=== PATIENT | female | born 1945 | race Caucasian/White ===

== ENCOUNTER 2017-07-02 07:23 | Outpatient (CLI) | payer MEDICARE ==
--- NOTE | 2017-07-02 09:47 | CT ---
LOW DOSE CT CHEST NONCONTRAST PULMONARY LUNG SCAN: Date: 07/02/17 HISTORY: Smoking History. Lowe Dose Screening Evaluation. COMPARISON: No prior comparison. FINDINGS: Subpleural reticulonodularity is present with the right upper lobe, with nodular component measuring 6mm, which contains calcification. There is no evidence of mass or consolidation within the pulmonary parenchyma bilaterally. Linear den sities adjacent to the heart bilaterally may relate to scar and/or volume loss. There is mild pulmon selina emphysema. Regional soft tissues are limited in assessment by noncontrast low dose technique. The re is atherosclerosis. Borderline nonspecific lymph nodes of the chest are present, with precarinal l ymph node short axis diameter of approximately 9 mm. IMPRESSION: 1. Lung-RADS primary category 3: Probably Benign. Continued annual screening with low dose CT in 6 months is warranted. 2. Mild pulmonary emphysema is present. POS: [facility]
== END 2017-07-02 07:24 | disposition home or self-care (01) ==
LOC: CT 07:23
PROVIDERS: ATTEND Internal Medicine
DX: Z87.891 Personal history of nicotine dependence (principal); J43.9 Emphysema, unspecified
CPT/HCPCS: G0297

== ENCOUNTER 2017-07-02 10:13 | Outpatient (CLI) | payer MEDICARE | END 2017-07-02 10:14 | disposition home or self-care (01) | LOC: BICULT 10:13 | PROVIDERS: ATTEND Internal Medicine | DX: N28.1 Cyst of kidney, acquired (principal) | CPT/HCPCS: 76770 ==

== ENCOUNTER 2017-07-06 13:06 | Outpatient (CLI) | payer MEDICARE, OTHER | END 2017-07-06 13:07 | disposition home or self-care (01) | LOC: BICMAMMO 13:06 | PROVIDERS: ATTEND Internal Medicine | DX: Z12.31 Encounter for screening mammogram for malignant neoplasm of breast (principal); M85.88 Other specified disorders of bone density and structure, other site; N63.20 Unspecified lump in the left breast, unspecified quadrant; Z78.0 Asymptomatic menopausal state; Z80.3 Family history of malignant neoplasm of breast | CPT/HCPCS: 77063; 77067; 77080 ==

== ENCOUNTER 2017-07-07 09:59 | Outpatient (CLI) | payer MEDICARE | END 2017-07-07 10:00 | disposition home or self-care (01) | LOC: BICMAMMO 09:59 | PROVIDERS: ATTEND Internal Medicine | DX: N63.20 Unspecified lump in the left breast, unspecified quadrant (principal); Z80.3 Family history of malignant neoplasm of breast | CPT/HCPCS: 76642; 77065; G0279 ==

== ENCOUNTER 2018-01-06 07:37 | Outpatient (CLI) | payer MEDICARE ==
--- NOTE | 2018-01-06 08:42 | CT ---
CT PULMONARY LUNG SCAN WITHOUT IV CONTRAST: INDICATION: Lung RADS category 3 lesion within the right upper lobe with a 50-year history of smoking; quit smoki ng 10 years ago. The patient had a left breast biopsy but denies shortness of breath or chest pain. COMPARISON: Prior exam dated 07/02/2017. FINDINGS: The 9 mm x 9.4 mm spiculated right upper lobe pulmonary nodule with eccentric calcification and adjac ent scarring extending to the pleural surface with pleural thickening is stable. This is seen on harvey ge 15 of series 3 and image 51 of the coronal series. Previously, the lesion was measured just in a portion of its component. The lesion is measured in total on today's exam. Scattered centrilobular emphysema is stable. There are coronary artery thoracic aortic calcifications. Visualized upper abd omen is unremarkable. There is scattered degenerative and osteoarthritic change. IMPRESSION: 1. Lung RADS category 3, probably benign. Recommend low-dose CT cancer screening followup in 6 alexandra hs to document stability. 2. Emphysema. POS: [facility]
== END 2018-01-06 07:38 | disposition home or self-care (01) ==
LOC: CT 07:37
PROVIDERS: ATTEND Internal Medicine
DX: Z87.891 Personal history of nicotine dependence (principal); R91.1 Solitary pulmonary nodule; J43.2 Centrilobular emphysema
CPT/HCPCS: G0297

== ENCOUNTER 2018-07-13 09:33 | Outpatient (CLI) | payer MEDICARE ==
--- NOTE | 2018-07-13 11:56 | CT ---
CT CHEST WITHOUT CONTRAST: 07/13/2018 PROVIDED CLINICAL HISTORY: Personal history of tobacco use. COMPARISON: 07/02/2017 and 01/06/2018 FINDINGS: There is a stable appearing 9 x 5 mm spiculated nodule with eccentric calcification involving the ant erior aspect of the right upper lobe. The lungs remain otherwise free of significant opacity. Emphysematous changes are seen involving the lung apices, similar to prior. Vascular calcification, including coronary calcium, is redemonstrated. There is no evidence for thor acic lymph node enlargement with limitations due to lack of IV contrast material. No pleural fluid or pneumothorax apparent. The visualized portions of the upper abdomen appear gross ly unremarkable. The osseous structures demonstrate no concerning lytic or blastic lesions. IMPRESSION: 1. Stable spiculated right upper lobe pulmonary nodule. 2. Lung-RADS category 3. Six-month follow-up CT recommended. POS: C
== END 2018-07-13 09:34 | disposition home or self-care (01) ==
LOC: CT 09:33
PROVIDERS: ATTEND Internal Medicine
DX: Z87.891 Personal history of nicotine dependence (principal); R91.1 Solitary pulmonary nodule
CPT/HCPCS: G0297

== ENCOUNTER 2018-07-15 10:30 | Outpatient (CLI) | payer MEDICARE ==
--- NOTE | 2018-07-15 11:15 | MMO ---
Bilateral MAMMO Bilat Screen [facility]. CLINICAL HISTORY: Patient is 72 years old and is seen for screening. The patient has the following family history of breast cancer: sister, malignant (generic). The patient has no personal history of cancer. The patient has a history of left Excisional Biopsy - benign - 20-25 yrs ago (approximately 41 or 46). VIEWS: The views performed were: bilateral craniocaudal with tomosynthesis and bilateral mediolateral oblique with tomosynthesis. FILMS COMPARED: The present examination has been compared to prior imaging studies performed at [facility] on 07/04/2013, 07/25/2014, 07/06/2017 and 07/07/2017. MAMMOGRAM FINDINGS: The breasts are heterogeneously dense, which could obscure a lesion on mammography. Finding 1: There are stable benign appearing calcifications seen in both breasts. Finding 2: There is a nodule seen in the left breast. There are no suspicious masses, suspicious calcifications, or new areas of architectural distortion. IMPRESSION: THERE IS NO MAMMOGRAPHIC EVIDENCE OF MALIGNANCY. A ROUTINE FOLLOW-UP MAMMOGRAM IN 1 YEAR IS RECOMMENDED. THE RESULTS OF THIS EXAM WERE SENT TO THE PATIENT. ACR BI-RADS Category 2 - Benign finding MAMMOGRAPHY NOTE: 1. A negative mammogram report should not delay a biopsy if a dominant of clinically suspicious mass is present. 2. Approximately 10% to 15% of breast cancers are not detected by mammography. 3. Adenosis and dense breasts may obscure an underlying neoplasm.
== END 2018-07-15 10:31 | disposition home or self-care (01) ==
LOC: BICMAMMO 10:30
PROVIDERS: ATTEND Internal Medicine
DX: Z12.31 Encounter for screening mammogram for malignant neoplasm of breast (principal); Z80.3 Family history of malignant neoplasm of breast
CPT/HCPCS: 77063; 77067

== ENCOUNTER 2018-08-16 06:06 | Observation (INO) | payer MEDICARE ==
[2018-08-16 07:27] LABS: #Eosinphils 0.2 thou/uL (0.0-0.7); #Lymphocytes 1.8 thou/uL (1.20-3.40); #Monocytes 0.7 thou/uL (0.11-0.59); #Neutrophils 6.6 thou/uL (1.40-6.50); %Basophils 0.4 % (0.0-1.0); %Eosinophils 1.9 % (0.0-10.0); %Lymphocytes 19.4 % (21.0-51.0); %Monocytes 7.3 % (0.0-10.0); Hemoglobin 14.2 g/dL (12.0-16.0); Mean Corpuscular Hemoglobin 30.1 pg (27.0-31.0); Mean Platelet Volume 8.1 fL (7.4-10.4); Platelet Count 208 thou/uL (130-400); RBC Distribution Width 12.1 % (11.5-14.5); Red Blood Cell (RBC) Count 4.72 mill/uL (4.20-5.40); White Blood Cell (WBC) Count 9.2 thou/uL (4.8-10.8)
--- NOTE | 2018-08-16 07:30 | RAD ---
EXAM: Single view of the chest HISTORY: Chest pain COMPARISON: None FINDINGS: Single view of the chest shows a normal sized cardiomediastinal silhouette. There is no rajesh dence of consolidation, mass, or pleural effusion. The bones are unremarkable. IMPRESSION: No evidence of acute cardiopulmonary disease
[2018-08-16 07:37] LABS: ALT (SGPT) 14 U/L (8-55); AST (SGOT) 12 U/L (5-34); Alkaline Phosphatase 109 U/L (40-150); Anion Gap 12 mmol/L (10-20); BUN (Urea Nitrogen) 18 mg/dL (9.8-20.1); Bilirubin, Total 0.5 mg/dL (0.2-1.2); CK (CPK) 39 U/L (29-168); Calc. Creatinine Clearance 0 mL/min (70-130); Calcium 9.5 mg/dL (7.8-10.44); Carbon Dioxide 27 mmol/L (23-31); Chloride 106 mmol/L (98-107); Estimated GFR-MDRD 59; Globulin 3.4 g/dL (2.4-3.5); Glucose 119 mg/dL (83-110); Potassium 3.5 mmol/L (3.5-5.1); Protein, Total 7.4 g/dL (6.0-8.3); Sodium 141 mmol/L (136-145)
[2018-08-16] MEDS ORDERED: Ondansetron PF 4 MG/2 ML Vial IVP PRN ×2 (09:17)
[2018-08-16] MEDS ORDERED: Benzonatate 100 MG CAP PO PRN (09:17)
[2018-08-16] MEDS ORDERED: Acetaminophen 325 MG TAB PO PRN (09:17)
[2018-08-16] MEDS ORDERED: Sodium Chloride 0.65% Nasal 44 ML BOT EA NARE PRN (09:17)
[2018-08-16] MEDS ORDERED: hydrALAZINE 20 MG/ML VIAL SLOW IVP PRN (09:17)
[2018-08-16] MEDS ORDERED: Diabetic Tussin 200 MG/10 ML UDCUP PO PRN (09:17)
[2018-08-16] MEDS ORDERED: Bisacodyl 5 MG TAB PO PRN ×2 (09:17)
[2018-08-16] MEDS ORDERED: cloNIDine 0.1 MG TAB PO PRN (09:17)
[2018-08-16] MEDS ORDERED: Senokot S 8.6-50 MG TAB PO PRN ×2 (09:17)
[2018-08-16] MEDS ORDERED: Pantoprazole 40 MG VIAL IVP SCH ×2 (09:45→12:15)
[2018-08-16] MEDS ORDERED: Amlodipine 10 MG TAB PO SCH (09:45)
[2018-08-16] MEDS ORDERED: Aspirin 325 MG TAB ONE (10:12)
--- NOTE | 2018-08-16 10:23 | HP ---
PRIMARY CARE PHYSICIAN: Herminia Mustafa MD CHIEF COMPLAINT: Severe acid reflux, heartburn, rule out ACS. HISTORY OF PRESENTING ILLNESS: Ms. Magaña is a very pleasant 73-year-old otherwise healthy female except for history of hypertension, new diagnosis of dyslipidemia, who presented to the ER with above-mentioned complaint. History is mainly obtained by the patient herself. Electronic medical records have been reviewed. Ms. Magaña reports that when she woke up at 4:30 in the morning to go to the bathroom, she noticed severe heartburn, starting upper abdomen under the sternum and then it later spread upwards to her chest and then down both of her arms. She describes it as a "hot" sensation. She has no associated shortness of breath, palpitation, dizziness, diaphoresis, nausea, or vomiting. She has not been sick recently. She denies any weight loss, dysphagia, poor appetite, hematochezia, or melena. She has no urinary complaints. She reports that these symptoms have happened once more about few weeks ago. She was recently seen by her primary care physician and was found to have elevated cholesterol, so was started on atorvastatin. The patient has been taking amlodipine and atorvastatin along with her fish oil, all on empty stomach. She does take the fish oil for the last 5 years, but reports that the heartburn is just getting worse for the last month or so. In the emergency room upon presentation, she was hemodynamically stable with a blood pressure of 135/77, saturating 96% on room air, heart rate 77. She had general evaluation including a 12-lead EKG, which did not show any acute ST or T-wave changes suggestive of ACS and her initial cardiac enzyme and chest x-ray were also unremarkable. She was given aspirin in the emergency room and is now being admitted to rule out ACS. PAST MEDICAL HISTORY: Hypertension and new diagnosis of dyslipidemia. PAST SURGICAL HISTORY: None reviewed with the patient. PSYCHIATRIC HISTORY: No anxiety. No depression. SOCIAL HISTORY: She has no history of drug, tobacco, or alcohol abuse. She used to smoke, but has quit more than 10 years ago. FAMILY HISTORY: No significant family history of heart attack or stroke. REVIEW OF SYSTEMS: A 14-point review of systems done and is negative except for those mentioned in the history and physical. ALLERGIES: NO KNOWN MEDICATION ALLERGIES. CURRENT MEDICATIONS: 1. Amlodipine 5 mg daily. 2. Atorvastatin 10 mg daily. 3. Fish oil daily. 4. Multivitamin daily. CODE STATUS: Full code discussed with the patient in detail. LABORATORY DATA: CBC is unremarkable. Serum chemistry is unremarkable. Blood sugar 119. Cardiac enzyme less than 0.010 for troponin. LFTs are within normal limits. Chest x-ray by my review shows no evidence of pleural effusion, edema, or infiltrate. A 12-lead EKG by my review shows normal sinus rhythm at 91 beats per minute without any ectopies. GA interval 140, QTc 467 milliseconds by my review. PHYSICAL EXAMINATION: VITAL SIGNS: Most recently, blood pressure 137/77, pulse of 77, respirations 16, temperature 98, saturating 96% on room air. She was a little bit hypertensive when she came in at 159/105. GENERAL: No acute distress. Awake, alert, and oriented x3. HEENT: Mucous membrane is moist and pink. No oropharyngeal exudate or erythema. Head is normocephalic and atraumatic. Pupils are equal and reactive to light and accommodation. Extraocular movement intact. NECK: Supple without any lymphadenopathy, JVD, or bruit. CHEST: Clear to auscultation without any wheezing, rales, or rhonchi. Rate and rhythm are regular without any murmurs, rubs, or gallops. ABDOMEN: Soft, nontender, nondistended with positive bowel sounds. There is no right upper quadrant or epigastric tenderness. EXTREMITIES: Free of any cyanosis, clubbing, or edema. NEUROLOGIC: Nonfocal. SKIN: Free of any rashes or bruises. Feels warm and dry to touch. PSYCHIATRIC: Normal affect. IMPRESSION AND PLAN: 1. Chest discomfort. The patient's symptoms are more suggestive of gastroesophageal reflux disease, however, given hypertension, dyslipidemia, and other risk factors: She will be admitted for acute coronary syndrome rule out. We will continue to trend serial cardiac enzymes and obtain a nuclear medicine stress test. The patient has never been risk stratified prior to this. We will also give her a trial of proton pump inhibitor for at least 2 weeks. I have encouraged her to start taking her medications with food especially the fish oil. She is otherwise hemodynamically stable. She will be monitored on telemetry unit. There are no risk factors to suggest a diagnosis of pulmonary embolism or any lung pathology. I have reviewed her CT scan of the chest that was done in the outpatient setting last month. She was found to have a small spiculated lung nodule at least since 2018, which has been followed up by CT scan every 6 months by the primary care physician and it is stable. It is 9 x 5 mm with eccentric calcification. I do not believe that this is responsible for her symptoms. a. If her cardiac workup is unremarkable and she has persistent symptoms even after a trial of proton pump inhibitor for 2 weeks: I have encouraged her to follow up with PCP for GI referral for EGD to rule out peptic ulcers or Queen's esophagus. 2. Hypertension, uncontrolled. We will give her morning dose of amlodipine and add p.r.n. antihypertensives and monitor. 3. Dyslipidemia. Resume atorvastatin at home dosages. 4. Spiculated lung nodule, stable as per the CT scan for the last year. Continue to follow with [address] scan of the chest. 5. Deep venous thrombosis and gastrointestinal prophylaxis. Ms. Magaña is currently being admitted under observation status for ACS rule out. Further management will depend upon her clinical course. Job ID: [id number]
[2018-08-16 10:44] LABS: Troponin I Less than 0.010 ng/mL (< 0.028)
[2018-08-16] MEDS ORDERED: Sodium Chloride 0.9% (PF) 10 ML VIAL FS PRN (12:07)
[2018-08-16 13:29] LABS: Troponin I 0.011 ng/mL (< 0.028)
[2018-08-16 15:03] VITALS: BMI 28.1
[2018-08-17 05:31] LABS: #Basophils 0.1 thou/uL (0.0-0.2); #Eosinphils 0.2 thou/uL (0.0-0.7); #Monocytes 0.6 thou/uL (0.11-0.59); #Neutrophils 4.1 thou/uL (1.40-6.50); %Basophils 0.8 % (0.0-1.0); %Eosinophils 3.2 % (0.0-10.0); %Lymphocytes 28.9 % (21.0-51.0); %Monocytes 8.9 % (0.0-10.0); %Neutrophils 58.2 % (42.0-75.0); Hemoglobin 13.8 g/dL (12.0-16.0); Mean Corpuscular HGB CONC 33.3 g/dL (32.0-36.0); Mean Corpuscular Hemoglobin 31.3 pg (27.0-31.0); Mean Corpuscular Volume 94.2 fL (78.0-98.0); Mean Platelet Volume 8.2 fL (7.4-10.4); Platelet Count 192 thou/uL (130-400); RBC Distribution Width 12.1 % (11.5-14.5); Red Blood Cell (RBC) Count 4.41 mill/uL (4.20-5.40); White Blood Cell (WBC) Count 7.1 thou/uL (4.8-10.8)
[2018-08-17 05:49] LABS: Anion Gap 12 mmol/L (10-20); BUN (Urea Nitrogen) 18 mg/dL (9.8-20.1); Calc. Creatinine Clearance 64 mL/min (70-130); Calcium 9.3 mg/dL (7.8-10.44); Carbon Dioxide 26 mmol/L (23-31); Chloride 106 mmol/L (98-107); Estimated GFR-MDRD 63; Glucose 96 mg/dL (83-110); Potassium 3.6 mmol/L (3.5-5.1); Sodium 140 mmol/L (136-145)
[2018-08-17] MEDS ORDERED: Famotidine 20 MG TAB PO PRN (09:05)
--- NOTE | 2018-08-17 11:23 | NM ---
EXAM: Nuclear medicine cardiac perfusion examination with ejection fraction HISTORY: Chest pain; hypertension TECHNIQUE: Rest images: 10.4 mCi technetium 99m sestamibi Stress images: 33 mCi of technetium 9M sestamibi; Adenosine COMPARISON: None FINDINGS: Tomographic images: No fixed or reversible perfusion defects. Gated images: Normal wall motion and ejection fraction of greater than 70%. EDV: 60 mL LHR: 0.3 TID: 0.9 IMPRESSION: No evidence of ischemia
[2018-08-17 12:09] VITALS: BP 160/81; TEMP 98.2
[2018-08-18] MEDS ORDERED: Fish Oil 1,000 MG CAP PO SCH (09:00)
[2018-08-18] MEDS ORDERED: Amlodipine 5 MG TAB PO SCH (09:00)
[2018-08-18] MEDS ORDERED: Atorvastatin Calcium 10 MG TAB PO SCH (09:00)
[2018-08-18] MEDS ORDERED: Folic Acid 1 MG TAB PO SCH (09:00)
--- NOTE | 2018-08-19 12:09 | EKG ---
Test Reason : Blood Pressure : / mmHG Vent. Rate : 091 BPM Atrial Rate : 091 BPM P-R Int : 140 ms QRS Dur : 084 ms QT Int : 380 ms P-R-T Axes : 071 031 047 degrees QTc Int : 467 ms Normal sinus rhythm Nonspecific ST abnormality Abnormal ECG Confirmed by SHAHNAZ DAWSON DO ([id number]), editor continuity and script CAITLYN BORREGO ([id number]) on 08/19/2018 12:08:49 PM Referred By: Confirmed By:SHAHNAZ DAWSON DO
== END 2018-08-17 13:47 | disposition home or self-care (01) ==
LOC: ERS 06:06 → ERHOLD 08:25 → 2SW 14:34
PROVIDERS: ADMIT Internal Medicine; ATTEND Internal Medicine
DX: R07.89 Other chest pain (principal); K21.9 Gastro-esophageal reflux disease without esophagitis; I10 Essential (primary) hypertension; E78.5 Hyperlipidemia, unspecified; R91.1 Solitary pulmonary nodule; Z87.891 Personal history of nicotine dependence; Z79.899 Other long term (current) drug therapy
CPT/HCPCS: 71045; 78452; 80048; 80053; 82550; 84484 ×2; 85025 ×2; 93005; 93017; 96374; 99285; A9500; G0378 ×2; 36415; C9113

== ENCOUNTER 2019-01-10 09:53 | Outpatient (CLI) | payer MEDICARE ==
--- NOTE | 2019-01-10 14:00 | CT ---
CT chest noncontrast low-dose screening HISTORY: Lung nodule. Follow-up. COMPARISON: 07/13/2018, 01/06/2018, and 07/02/2017. FINDINGS: Lungs remain slightly hyperinflated. The focal somewhat spiculated nodule in the area of re traction within the anterior aspect of the right upper lobe is unchanged in appearance, measuring up to 0.8 cm greatest diameter. Central calcification is stable. No new mass. Airways are patent. Calcification throughout the arterial structures. Lack of contrast limits evaluation of the soft tissues. Nonspecific lymph nodes throughout the medias tinum. IMPRESSION: Stable CT appearance of the partially calcified, somewhat spiculated nodule within the ri ght upper lobe. No new abnormalities. Lung RADS category 3. Benign findings. Continued follow-up at 6 months suggested. June 2019 will be 2 years of short-term follow-up. Atherosclerosis.
== END 2019-01-10 09:54 | disposition home or self-care (01) ==
LOC: CT 09:53
PROVIDERS: ATTEND Internal Medicine
DX: Z12.2 Encounter for screening for malignant neoplasm of respiratory organs (principal); Z87.891 Personal history of nicotine dependence
CPT/HCPCS: G0297

== ENCOUNTER 2019-08-24 13:55 | Outpatient (CLI) | payer MEDICARE ==
--- NOTE | 2019-08-24 14:21 | MMO ---
Bilateral MAMMO Bilat Screen [facility]. CLINICAL HISTORY: Patient is 74 years old and is seen for screening. The patient has the following family history of breast cancer: sister, malignant (generic). The patient has no personal history of cancer. The patient has a history of left Excisional Biopsy - benign - 20-25 yrs ago (approximately 41 or 46). VIEWS: The views performed were: bilateral craniocaudal with tomosynthesis and bilateral mediolateral oblique with tomosynthesis. FILMS COMPARED: The present examination has been compared to prior imaging studies performed at [facility] on 07/25/2014, 07/06/2017, 07/07/2017 and 07/15/2018. This study has been interpreted with the assistance of computer-aided detection. MAMMOGRAM FINDINGS: The breasts are heterogeneously dense, which could obscure a lesion on mammography. There are benign appearing calcifications seen in both breasts. There are no suspicious masses, suspicious calcifications, or new areas of architectural distortion. IMPRESSION: THERE IS NO MAMMOGRAPHIC EVIDENCE OF MALIGNANCY. A ROUTINE FOLLOW-UP MAMMOGRAM IN 1 YEAR IS RECOMMENDED. THE RESULTS OF THIS EXAM WERE SENT TO THE PATIENT. ACR BI-RADS Category 2 - Benign finding MAMMOGRAPHY NOTE: 1. A negative mammogram report should not delay a biopsy if a dominant of clinically suspicious mass is present. 2. Approximately 10% to 15% of breast cancers are not detected by mammography. 3. Adenosis and dense breasts may obscure an underlying neoplasm. Reported by: BISI TODD MD Electonically Signed: [id number]
--- NOTE | 2019-08-24 15:47 | CT ---
CT PULMONARY LUNG SCAN: 08/24/19 INDICATION: History of six month follow-up, former smoker; one pack per day for 50 years; 74-year-old female. COMPARISON: Prior exam dated 01/10/19 and 01/06/18. FINDINGS: There is a spiculated nodular opacity within the right upper lobe most suspicious for scar relatively stable in size measuring 8 x 5 mm. Scattered emphysema is similar appearing. There is a new 3 mm pulmonary nodule in the right lower lobe on image 104 of series 3. No additional suspicious pulmonary nodule is evident. There is a tiny sub 4 mm pulmonary nodule within the anterolateral left lower lobe on image 118 of se ariana 3 that has been stable since 2018 and is benign. Mild scarring within the posterolateral right lower lobe and lingula stable appearing. There are prominent vascular calcifications involving the coronary artery and thoracic aorta. There is a small hiatal hernia. The visualized upper abdomen reveals no acute abnormality. There is s cattered degenerative and osteoarthritic change. IMPRESSION: Lung RADS category 2 - benign. Recommend annual low dose lung cancer screening CT in one year. There is a new small 3 mm pulmonary nodule in the right lower lobe that can be followed up on his yearly ex am. Category S: Prominent coronary artery and thoracic aortic calcifications and emphysema. POS: [facility]
== END 2019-08-24 13:56 | disposition home or self-care (01) ==
LOC: BICCT 13:55
PROVIDERS: ATTEND Internal Medicine
DX: Z12.31 Encounter for screening mammogram for malignant neoplasm of breast (principal); Z12.2 Encounter for screening for malignant neoplasm of respiratory organs; Z87.891 Personal history of nicotine dependence; I25.10 Atherosclerotic heart disease of native coronary artery without angina pectoris; I70.0 Atherosclerosis of aorta; J43.9 Emphysema, unspecified; Z80.3 Family history of malignant neoplasm of breast; Z91.89 Other specified personal risk factors, not elsewhere classified
CPT/HCPCS: 77063; 77067; G0297

== ENCOUNTER 2020-11-14 09:52 | Outpatient (CLI) | payer MEDICARE, OTHER | END 2020-11-14 09:53 | disposition home or self-care (01) | LOC: BICCT 09:52 | PROVIDERS: ATTEND Internal Medicine | DX: Z12.31 Encounter for screening mammogram for malignant neoplasm of breast (principal); Z53.20 Procedure and treatment not carried out because of patient's decision for unspecified reasons; Z87.891 Personal history of nicotine dependence; Z80.3 Family history of malignant neoplasm of breast; Z91.89 Other specified personal risk factors, not elsewhere classified | CPT/HCPCS: 71271; 77063; 77067 ==

== ENCOUNTER 2021-06-26 05:41 | Emergency (ER) | payer MEDICARE, OTHER ==
[2021-06-26] MEDS ORDERED: Ondansetron ODT 4 MG TAB ONE (06:13)
[2021-06-26] MEDS ORDERED: Pantoprazole 40 MG VIAL ONE (06:36)
[2021-06-26 06:41] LABS: #Basophils 0.1 thou/uL (0.0-0.2); #Eosinphils 0.2 thou/uL (0.0-0.7); #Lymphocytes 1.3 thou/uL (1.20-3.40); #Monocytes 1.3 thou/uL (0.11-0.59); #Neutrophils 11.8 thou/uL (1.40-6.50); %Basophils 0.4 % (0.0-1.0); %Eosinophils 1.1 % (0.0-10.0); %Lymphocytes 8.6 % (21.0-51.0); %Monocytes 8.7 % (0.0-10.0); %Neutrophils 81.2 % (42.0-75.0); Hemoglobin 14.6 g/dL (12.0-16.0); Mean Corpuscular HGB CONC 32.5 g/dL (32.0-36.0); Mean Corpuscular Hemoglobin 31.2 pg (27.0-31.0); Mean Corpuscular Volume 96.2 fL (78.0-98.0); Mean Platelet Volume 7.9 fL (7.4-10.4); Platelet Count 179 thou/uL (130-400); RBC Distribution Width 12.2 % (11.5-14.5); Red Blood Cell (RBC) Count 4.68 mill/uL (4.20-5.40); White Blood Cell (WBC) Count 14.6 thou/uL (4.8-10.8)
[2021-06-26 06:55] LABS: ALT (SGPT) 17 U/L (8-55); AST (SGOT) 14 U/L (5-34); Albumin 3.8 g/dL (3.4-4.8); Alkaline Phosphatase 74 U/L (40-110); Anion Gap 13 mmol/L (10-20); BUN (Urea Nitrogen) 37 mg/dL (9.8-20.1); Bilirubin, Total 0.4 mg/dL (0.2-1.2); Calc. Creatinine Clearance 0 mL/min (70-130); Calcium 8.9 mg/dL (7.8-10.44); Carbon Dioxide 25 mmol/L (23-31); Chloride 104 mmol/L (98-107); Globulin 3.2 g/dL (2.4-3.5); Glucose 144 mg/dL (83-110); Lipase 13 U/L (8-78); Potassium 3.8 mmol/L (3.5-5.1); Sodium 138 mmol/L (136-145)
[2021-06-26] MEDS ORDERED: Mag-Al 1200 mg/1200 mg/30 ML UDCUP ONE (07:31)
[2021-06-26 08:07] LABS: Bilirubin Negative (Negative); Blood, Urine Negative (Negative); Clarity Clear (Clear); Glucose, Urine (Dipstick) Normal (Negative); Ketone, Urine Negative (Negative); Leukocyte Negative Leu/uL (Negative); Nitrite Negative (Negative); Protein, Urine (Dipstick) Negative (Neg-Trace); Specific Gravity, Urine 1.017 (1.002-1.036); Urobilinogen Normal mg/dL (Less than 2); pH, Urine 7.5 (5.0-9.0)
[2021-06-26 10:17] LABS: Troponin I Less than 0.010 ng/mL (< 0.028)
== END 2021-06-26 11:35 | disposition home or self-care (01) ==
LOC: ERS 05:41
DX: R11.2 Nausea with vomiting, unspecified (principal); I10 Essential (primary) hypertension; E78.5 Hyperlipidemia, unspecified; Z87.891 Personal history of nicotine dependence; Z79.899 Other long term (current) drug therapy
CPT/HCPCS: 36415; 71045; 80053; 81003; 83690; 84484; 85025; 93005; 96374; C9113; Q0162

== ENCOUNTER 2022-07-07 10:16 | Outpatient (CLI) | payer MEDICARE, OTHER | END 2022-07-07 10:17 | disposition home or self-care (01) | LOC: BICCT 10:16 | PROVIDERS: ATTEND Internal Medicine | DX: Z12.31 Encounter for screening mammogram for malignant neoplasm of breast (principal); Z12.2 Encounter for screening for malignant neoplasm of respiratory organs; Z87.891 Personal history of nicotine dependence; R91.1 Solitary pulmonary nodule; R92.1 Mammographic calcification found on diagnostic imaging of breast; J43.2 Centrilobular emphysema; J98.4 Other disorders of lung; I25.10 Atherosclerotic heart disease of native coronary artery without angina pectoris; Z80.3 Family history of malignant neoplasm of breast; Z91.89 Other specified personal risk factors, not elsewhere classified | CPT/HCPCS: 71271; 77063; 77067 ==

== ENCOUNTER 2023-01-25 10:44 | Outpatient (CLI) | payer MEDICARE, OTHER | END 2023-01-25 10:45 | disposition home or self-care (01) | LOC: BICCT 10:44 | PROVIDERS: ATTEND Internal Medicine | DX: R91.1 Solitary pulmonary nodule (principal) | CPT/HCPCS: 71250 ==

== ENCOUNTER 2023-08-27 09:57 | Outpatient (CLI) | payer MEDICARE, OTHER | END 2023-08-27 09:58 | disposition home or self-care (01) | LOC: BICMAMMO 09:57 | PROVIDERS: ATTEND Internal Medicine | DX: Z12.31 Encounter for screening mammogram for malignant neoplasm of breast (principal); R91.1 Solitary pulmonary nodule; Z98.890 Other specified postprocedural states; Z80.3 Family history of malignant neoplasm of breast; Z91.89 Other specified personal risk factors, not elsewhere classified | CPT/HCPCS: 71250; 77063; 77067 ==

== ENCOUNTER 2024-01-25 12:43 | Outpatient (CLI) | payer MEDICARE, OTHER | END 2024-01-25 12:44 | disposition home or self-care (01) | LOC: CT 12:43 | PROVIDERS: ATTEND Student in an Organized Health Care Education/Training Program | DX: R91.1 Solitary pulmonary nodule (principal); R59.9 Enlarged lymph nodes, unspecified | CPT/HCPCS: 71250 ==

== ENCOUNTER 2024-02-02 11:45 | Outpatient (CLI) | payer MEDICARE, OTHER | END 2024-02-02 11:46 | disposition home or self-care (01) | LOC: PET 11:45 | PROVIDERS: ATTEND Student in an Organized Health Care Education/Training Program | DX: R91.1 Solitary pulmonary nodule (principal) | CPT/HCPCS: 78815; A9552 ==

== ENCOUNTER 2024-03-13 11:33 | Outpatient (CLI) | payer MEDICARE, OTHER | END 2024-03-13 11:34 | disposition home or self-care (01) | LOC: LABBT 11:33 | PROVIDERS: ATTEND Student in an Organized Health Care Education/Training Program | DX: Z01.818 Encounter for other preprocedural examination (principal); C78.1 Secondary malignant neoplasm of mediastinum; R91.1 Solitary pulmonary nodule | CPT/HCPCS: 71046 ==

== ENCOUNTER 2024-03-14 06:10 | Day surgery (SDC) | payer MEDICARE, OTHER ==
[2024-03-13 11:52] VITALS: BMI 29.6
[2024-03-13 12:46] LABS: #Basophils 0.05 10x3/uL (0.0-0.2); %Basophils 0.6 % (0.0-1.0); %Eosinophils 1.4 % (0.0-10.0); %Lymphocytes 18.6 % (21.0-51.0); %Monocytes 8.7 % (0.0-10.0); %Neutrophils 70.5 % (42.0-75.0); Hematocrit 45.1 % (36.0-47.0); Hemoglobin 14.7 g/dL (12.0-16.0); Mean Corpuscular HGB CONC 32.6 g/dL (32.0-36.0); Mean Corpuscular Hemoglobin 30.8 pg (27.0-31.0); Mean Corpuscular Volume 94.4 fL (78.0-98.0); Mean Platelet Volume 10.6 fL (7.4-10.4); Platelet Count 228 10x3/uL (130-400); RBC Distribution Width 12.2 % (11.5-14.5); Red Blood Cell (RBC) Count 4.78 mill/uL (4.20-5.40)
[2024-03-13 13:02] LABS: Anion Gap 13 mmol/L (10-20); BUN (Urea Nitrogen) 21 mg/dL (9.8-20.1); Calc. Creatinine Clearance 0 mL/min (70-130); Calcium 9.6 mg/dL (7.8-10.44); Carbon Dioxide 30 mmol/L (23-31); Chloride 104 mmol/L (98-107); Estimated GFR 66; Glucose 119 mg/dL (83-110); Potassium 3.6 mmol/L (3.5-5.1); Sodium 143 mmol/L (136-145)
[2024-03-14] MEDS ORDERED: Bupivacaine PF 0.5% 30 ML VIAL ONE (06:52)
[2024-03-14] MEDS ORDERED: EPINEPHrine 1 MG/ML VIAL ONE (06:52)
[2024-03-14] MEDS ORDERED: Rocuronium Bromide 10 MG/ML (10ML VIAL) ONE ×2 (07:16→07:20)
[2024-03-14] MEDS ORDERED: fentaNYL PF 100 MCG/2 ML SYRINGE ONE ×2 (07:16→11:16)
[2024-03-14] MEDS ORDERED: Lidocaine 2% PF 5 ML VIAL ONE (07:16)
[2024-03-14] MEDS ORDERED: PROPOFOL 20 ML ONE (07:20)
[2024-03-14] MEDS ORDERED: PHENYLEPHRINE-NS 100 MCG/ML 10 ML SYRINGE ONE (07:23)
[2024-03-14] MEDS ORDERED: Dexamethasone 20 MG/5 ML VIAL ONE (07:23)
[2024-03-14] MEDS ORDERED: NEOSTIGMINE 3 MG/3 ML SYRINGE ONE (07:23)
[2024-03-14] MEDS ORDERED: Glycopyrrolate 0.2 MG/ML 5 ML SYRINGE ONE (07:23)
[2024-03-14] MEDS ORDERED: Ondansetron PF 4 MG/2 ML Vial ONE (07:23)
[2024-03-14] MEDS ORDERED: CEFAZOLIN 2 GM VIAL ONE (08:22)
[2024-03-14] MEDS ORDERED: Sodium Chloride 0.9% 100 ML ONE (08:22)
[2024-03-14] MEDS ORDERED: Ipratropium/Albuterol 3 ML NEB ONE (10:21)
[2024-03-14] MEDS ORDERED: SUGAMMADEX SODIUM 200 MG/2 ML VIAL ONE (10:21)
== END 2024-03-14 13:39 | disposition home or self-care (01) ==
LOC: SDC 06:10
PROVIDERS: ATTEND Student in an Organized Health Care Education/Training Program
PROC: 07B74ZX Excision of Thorax Lymphatic, Percutaneous Endoscopic Approach, Diagnostic (ICD-10-PCS; principal; 2024-03-14)
DX: D76.3 Other histiocytosis syndromes (principal); R91.1 Solitary pulmonary nodule; I12.9 Hypertensive chronic kidney disease with stage 1 through stage 4 chronic kidney disease, or unspecified chronic kidney disease; N18.30 Chronic kidney disease, stage 3 unspecified; E78.5 Hyperlipidemia, unspecified; K21.9 Gastro-esophageal reflux disease without esophagitis; F41.9 Anxiety disorder, unspecified; Z87.891 Personal history of nicotine dependence; Z98.41 Cataract extraction status, right eye; Z98.42 Cataract extraction status, left eye; Z91.048 Other nonmedicinal substance allergy status; Z88.8 Allergy status to other drugs, medicaments and biological substances; Z79.899 Other long term (current) drug therapy
CPT/HCPCS: 39402; 71045; 80048; 85025; 86850; 86900; 86901; J0171; J0665; J1100; J2405; J2704; 88184; 88307; 88312; 88341; 88342; J7620

== ENCOUNTER 2024-03-15 22:23 | Emergency (ER) | payer MEDICARE, OTHER | END 2024-03-15 23:50 | disposition home or self-care (01) | LOC: ERS 22:23 | DX: L76.82 Other postprocedural complications of skin and subcutaneous tissue (principal); R22.2 Localized swelling, mass and lump, trunk; Z87.891 Personal history of nicotine dependence | CPT/HCPCS: 99283 ==

== ENCOUNTER 2024-04-04 13:00 | Outpatient (CLI) | payer MEDICARE, OTHER | END 2024-04-04 13:01 | disposition home or self-care (01) | LOC: RAD 13:00 | PROVIDERS: ATTEND Student in an Organized Health Care Education/Training Program | DX: C78.1 Secondary malignant neoplasm of mediastinum (principal); R91.1 Solitary pulmonary nodule; J44.9 Chronic obstructive pulmonary disease, unspecified | CPT/HCPCS: 71046 ==

== ENCOUNTER 2024-06-15 11:13 | Outpatient (CLI) | payer MEDICARE, OTHER | END 2024-06-15 11:14 | disposition home or self-care (01) | LOC: RAD 11:13 | PROVIDERS: ATTEND Student in an Organized Health Care Education/Training Program | DX: C34.11 Malignant neoplasm of upper lobe, right bronchus or lung (principal) | CPT/HCPCS: 71046 ==